=== PATIENT | female | born 1975 | race African-American/Black ===

== ENCOUNTER 2017-02-27 10:07 | Emergency (ER) | payer OTHER ==
[~2017-02-27] VITALS: Ht 157.5 cm; Wt 65.8 kg
[~2017-02-27 10:07] MED LIST: ACCUNEB SO1.25 MG/1 INH; ALBUTEROL2.5 MG/0.5 INH; BACTRIM DS TAB1 EACH PO; IPRATROPIU0.2 MG/1 M IH; KEFLEX500 MG PO; NEXIUM40 MG PO; NOHOMEMEDICATIONS; NORCO 5-325 TA1 EACH PO; PERCOCET 7.5-31 EACH PO; PHENAZOPYRIDIN200 M2 PO; SINGULAIR 10 MG10 M1 PO; SYMBICORT160 MCG/4. INH
[2017-02-27] MEDS ORDERED: PREDNISONE 20 M20 MG PO (12:45)
[2017-02-27] MEDS ORDERED: NORCO 5-325 TA1 EACH PO (12:45)
== END 2017-02-27 14:31 | disposition home or self-care (01) ==
LOC: ER 10:07
DX: S40.011A Contusion of right shoulder, initial encounter (principal); S10.93XA Contusion of unspecified part of neck, initial encounter; J45.901 Unspecified asthma with (acute) exacerbation; F10.99 Alcohol use, unspecified with unspecified alcohol-induced disorder; Z87.442 Personal history of urinary calculi; Z98.890 Other specified postprocedural states; Z88.1 Allergy status to other antibiotic agents; Z88.6 Allergy status to analgesic agent; V89.2XXA Person injured in unspecified motor-vehicle accident, traffic, initial encounter; Y93.I9 Activity, other involving external motion; Y92.89 Other specified places as the place of occurrence of the external cause; Y99.8 Other external cause status

== ENCOUNTER → 2017-05-02 | Outpatient (CLI) | payer OTHER ==
[~2017-05-02] MED LIST changes: +PREDNISONE 20 M20 MG PO
== END ==
LOC: MRI 07:22
DX: G62.9 Polyneuropathy, unspecified (principal); J32.9 Chronic sinusitis, unspecified; M54.2 Cervicalgia; R20.2 Paresthesia of skin

== ENCOUNTER 2019-03-11 14:25 | Emergency (ER) | payer OTHER ==
[~2019-03-11] VITALS: Ht 157.5 cm; Wt 71.2 kg
[2019-03-11] MEDS ORDERED: ULTRAM 50MG TAB50 MG PO (15:01)
[2019-03-11 16:03] VITALS: BP 126/80
== END 2019-03-11 16:03 | disposition home or self-care (01) ==
LOC: ER 14:25
DX: M77.12 Lateral epicondylitis, left elbow (principal); J45.909 Unspecified asthma, uncomplicated; Z88.6 Allergy status to analgesic agent; Z88.1 Allergy status to other antibiotic agents; Z98.890 Other specified postprocedural states

== ENCOUNTER 2019-04-16 20:03 | Emergency (ER) | payer OTHER ==
[~2019-04-16] VITALS: Ht 157.5 cm; Wt 71.7 kg
[~2019-04-16 20:03] MED LIST changes: +ULTRAM 50MG TAB50 MG PO
[2019-04-16 20:10] VITALS: BP 182/91
[2019-04-16] MEDS ORDERED: NORCO 5-325 TA1 EAC1 PO (20:39)
== END 2019-04-16 20:45 | disposition home or self-care (01) ==
LOC: ER 20:03
DX: K08.89 Other specified disorders of teeth and supporting structures (principal); K13.79 Other lesions of oral mucosa; J45.909 Unspecified asthma, uncomplicated; Z90.89 Acquired absence of other organs; Z98.890 Other specified postprocedural states; Z87.442 Personal history of urinary calculi; Z88.6 Allergy status to analgesic agent; Z88.1 Allergy status to other antibiotic agents